=== PATIENT | female | born 2000 | race Caucasian/White ===

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

== ENCOUNTER 2021-04-08 04:50 | Emergency (ER) | payer OTHER ==
[~2021-04-08 04:50] MED LIST: CIPRO500 MG PO; ZOFRAN8 MG PO
[2021-04-08 05:20] LABS: BASOPHIL 0.7 % (0-2); EOSINOPHIL 1.5 % (0-5); HCT 40.5 % (37.0-47.0); HGB 13.9 g/dl (12.5-16.0); LYMPHOCYTE 33.2 % (15-48); MCH 31.3 pg (25.0-31.0); MCHC 34.3 g/dL (32.0-36.0); MCV 91.2 fL (78.0-100.0); MONOCYTE 9.3 % (0-12); MPV 10.2 fL (6.0-9.5); NEUTROPHIL 55.2 % (41-80); NRBC 0; PLT 248 K/uL (150-400); RBC 4.44 M/uL (4.20-5.40); RDW 11.8 % (11.5-14.0); WBC 7.3 K/uL (4.0-10.5)
[2021-04-08 05:35] LABS: ALBUMIN 4.1 g/dL (3.4-5.0); BILIRUBIN - TOTAL 0.9 mg/dL (0.2-1.0); BUN/CREAT RATIO (CALC) 22.2 RATIO; CREATININE 0.63 mg/dL (0.51-0.95); GLOBULIN (CALCULATION) 3.3 g/dL; POTASSIUM 4.3 mmol/L (3.5-5.1); TOTAL PROTEIN 7.4 g/dL (6.4-8.2)
[2021-04-08 06:40] LABS: BILIRUBIN NEGATIVE (NEGATIVE); BLOOD NEGATIVE Ery/uL (NEGATIVE); COLOR YELLOW (YELLOW); GLUCOSE (U) NORMAL (NORMAL); LEUKOCYTES TRACE Leu/uL (NEGATIVE); NITRITE NEGATIVE (NEGATIVE); PROTEIN NEGATIVE (NEGATIVE); SPECIFIC GRAVITY 1.015 (1.001-1.030); UROBILINOGEN 0.2 mg/dL (0.2-1.0)
[2021-04-08 06:46] LABS: CLARITY HAZY (CLEAR)
[2021-04-08 06:49] LABS: BACTERIA 3+
[2021-04-08] MEDS ORDERED: MIRALAX 238GM238 GM PO (07:01)
[2021-04-08] MEDS ORDERED: ONDANSETRON ODT4 MG SL (07:01)
[2021-04-08] MEDS ORDERED: NORCO 5-325 TA1 EACH PO (07:01)
[2021-04-08] MEDS ORDERED: BENTYL10 MG PO (07:01)
== END 2021-04-08 07:25 | disposition home or self-care (01) ==
LOC: FER 04:50
PROVIDERS: Emergency Medicine Emergency Medical Services
DX: R10.11 Right upper quadrant pain (principal); R51.9 Headache, unspecified; R42 Dizziness and giddiness; F17.200 Nicotine dependence, unspecified, uncomplicated; Z88.8 Allergy status to other drugs, medicaments and biological substances; Z86.16 Personal history of COVID-19
CPT/HCPCS: 36415; 80053; 81001; 83690; 85025; J1885; J2405; J7030; Q9967

== ENCOUNTER 2021-04-15 21:54 | Emergency (ER) | payer OTHER ==
[~2021-04-15 21:54] MED LIST changes: +BENTYL10 MG PO; +MIRALAX 238GM238 GM PO; +NORCO 5-325 TA1 EACH PO; +ONDANSETRON ODT4 MG SL
[2021-04-15] MEDS ORDERED: MACROBID100 MG PO (23:12)
== END 2021-04-15 23:47 | disposition home or self-care (01) ==
LOC: FER 21:54
DX: N39.0 Urinary tract infection, site not specified (principal); F17.200 Nicotine dependence, unspecified, uncomplicated; Z88.8 Allergy status to other drugs, medicaments and biological substances
CPT/HCPCS: 99284

== ENCOUNTER 2021-05-18 17:38 | Emergency (ER) | payer OTHER ==
[~2021-05-18 17:38] MED LIST changes: +MACROBID100 MG PO
[2021-05-18 20:11] LABS: CORONAVIRUS 2019 SARS-COV-2 POSITIVE (NEGATIVE); INFLUENZA A NAA NEGATIVE (NEGATIVE)
[2021-05-18 20:15] LABS: BASOPHIL 0.8 % (0-2); EOSINOPHIL 0.8 % (0-5); HCT 41.1 % (37.0-47.0); HGB 14.4 g/dl (12.5-16.0); LYMPHOCYTE 32.2 % (15-48); MCH 31.6 pg (25.0-31.0); MCV 90.1 fL (78.0-100.0); MONOCYTE 13.5 % (0-12); MPV 10.4 fL (6.0-9.5); NEUTROPHIL 52.5 % (41-80); NRBC 0; PLT 199 K/uL (150-400); RBC 4.56 M/uL (4.20-5.40); RDW 11.9 % (11.5-14.0); WBC 4.9 K/uL (4.0-10.5)
[2021-05-18] MEDS ORDERED: G TUSSIN AC LI118 ML PO (20:37)
[2021-05-18] MEDS ORDERED: ONDANSETRON ODT4 MG PO (20:37)
[2021-05-18 20:50] LABS: ALBUMIN 3.9 g/dL (3.4-5.0); BUN/CREAT RATIO (CALC) 17.7 RATIO; CREATININE 0.62 mg/dL (0.51-0.95); GLOBULIN (CALCULATION) 3.5 g/dL; POTASSIUM 3.9 mmol/L (3.5-5.1); TOTAL PROTEIN 7.4 g/dL (6.4-8.2)
== END 2021-05-18 21:44 | disposition home or self-care (01) ==
LOC: FER 17:38
PROVIDERS: Internal Medicine
DX: U07.1 COVID-19 (principal); R07.81 Pleurodynia; J45.909 Unspecified asthma, uncomplicated; F17.210 Nicotine dependence, cigarettes, uncomplicated
CPT/HCPCS: 36415; 71045; 80053; 84145; 85025; U0002

== ENCOUNTER 2021-11-04 07:47 | Emergency (ER) | payer OTHER ==
[~2021-11-04 07:47] MED LIST changes: +G TUSSIN AC LI118 ML PO; +ONDANSETRON ODT4 MG PO
[2021-11-04 08:59] LABS: BILIRUBIN NEGATIVE (NEGATIVE); BLOOD 3+ Ery/uL (NEGATIVE); CLARITY CLEAR (CLEAR); COLOR YELLOW (YELLOW); GLUCOSE (U) NORMAL (NORMAL); LEUKOCYTES NEGATIVE Leu/uL (NEGATIVE); NITRITE NEGATIVE (NEGATIVE); PROTEIN TRACE (LOW) mg/dL (NEGATIVE); SPECIFIC GRAVITY 1.025 (1.001-1.030); pH 6.5 (5.0-9.0)
[2021-11-04 09:08] LABS: AMPHETAMINES NEGATIVE (NEGATIVE); BARBITURATES NEGATIVE (NEGATIVE); ECSTASY (MDMA) NEGATIVE (NEGATIVE); MARIJUANA (THC) NEGATIVE (NEGATIVE); METHADONE NEGATIVE (NEGATIVE); OPIATES NEGATIVE (NEGATIVE); OXYCODONE NEGATIVE (NEGATIVE)
[2021-11-04 09:24] LABS: AMORPHOUS URATES CRYSTALS TRACE; BACTERIA TRACE
[2021-11-04 09:40] LABS: BASOPHIL 0.6 % (0-2); EOSINOPHIL 0.7 % (0-5); HCT 38.4 % (37.0-47.0); HGB 13.3 g/dl (12.5-16.0); LYMPHOCYTE 25.1 % (15-48); MCH 31.5 pg (25.0-31.0); MCHC 34.6 g/dL (32.0-36.0); MONOCYTE 8.8 % (0-12); MPV 10.7 fL (6.0-9.5); NEUTROPHIL 64.7 % (41-80); NRBC 0; PLT 254 K/uL (150-400); RBC 4.22 M/uL (4.20-5.40); RDW 11.7 % (11.5-14.0); WBC 8.6 K/uL (4.0-10.5)
[2021-11-04 09:41] LABS: HCG (URINE) SCREEN NEGATIVE (NEGATIVE)
[2021-11-04 10:04] LABS: ALBUMIN 3.6 g/dL (3.4-5.0); ALKALINE PHOSHATASE 70 U/L (46-116); ALT 18 U/L (14-59); AST 31 U/L (15-37); BILIRUBIN - TOTAL 0.7 mg/dL (0.2-1.0); BUN 11 mg/dL (7-18); BUN/CREAT RATIO (CALC) 19.3 RATIO; CHLORIDE 104 mmol/L (98-107); CO2 (BICARBONATE) 24 mmol/L (21-32); CREATININE 0.57 mg/dL (0.51-0.95); GLOBULIN (CALCULATION) 3.4 g/dL; GLUCOSE 97 mg/dL (74-106); POTASSIUM 4.4 mmol/L (3.5-5.1)
== END 2021-11-04 11:44 | disposition home or self-care (01) ==
LOC: FER 07:47
PROVIDERS: Emergency Medicine
DX: S00.83XA Contusion of other part of head, initial encounter (principal); S70.02XA Contusion of left hip, initial encounter; F17.210 Nicotine dependence, cigarettes, uncomplicated; Z88.8 Allergy status to other drugs, medicaments and biological substances; W01.0XXA Fall on same level from slipping, tripping and stumbling without subsequent striking against object, initial encounter; Y93.01 Activity, walking, marching and hiking; Y92.410 Unspecified street and highway as the place of occurrence of the external cause; Z28.310 Unvaccinated for COVID-19
CPT/HCPCS: 36415; 70450; 73502; 80053; 80305; 81001; 84703; 85025; 93005; G0480; J1885; J2405; J7030